=== PATIENT | male | born 1985 | race Caucasian/White ===

== ENCOUNTER 2024-11-11 09:07 | Outpatient (CLI) | payer OTHER, SELFPAY ==
--- NOTE | 2024-12-22 13:39 | W.PM.SLEEP ---
Sleep Study Details Details Interpreting Provider: Jose Roberto Date of Sleep Study: 11/11/24 Sleep Study Details: STUDY TYPE:? Home unattended ? BMI:? 39.8 ORDERING PROVIDER:Valerie Cid INDICATION:? Concern for sleep apnea ? SLEEP SUMMARY:? 551.5 minutes monitored RESPIRATORY SUMMARY:? AHI 25.3 per rule 1A, 15.6 per CMS guideline Low oxygen 82 38.5% of study oxygen less than 90% PERIODIC LIMB MOVEMENTS OF SLEEP:? Not recorded CARDIAC:? Range 57-107, mean 75.7 beats per minute IMPRESSION:? Moderate obstructive sleep apnea with significant hypo oxygenation RECOMMENDATION: Treatment options include CPAP and dental appliance. I would favor CPAP. Once effective therapy is established she should have an overnight oximetry study.
== END 2024-11-11 09:08 | disposition home or self-care (01) ==
PROVIDERS: PCP Family Medicine; Visit Provider Otolaryngology
DX: G47.33 Obstructive sleep apnea (adult) (pediatric) (principal)
CPT/HCPCS: 95806